=== PATIENT | male | born 1950 | race Two or more races ===

== ENCOUNTER 2025-01-31 08:26 | Emergency (ER) | payer MEDICAID ==
[~2025-01-31] VITALS: Ht 175.3 cm; Wt 90.6 kg
--- NOTE | 2025-01-31 09:58 | ED.PDOC ---
Musculoskeletal HPI Comments 74 year old male presents for chronic bilateral knee pain Been dealing with pain for years Had knee replacement 2 years ago Reports pain is constant and aggravated with ambulation PCP: Dr. Aracelis Rogers Next apt 1 month Able to bear weight on the leg Denies trauma to the knee or recent fall Denies skin color changes around the knee Denies masses around the knee Denies popping/locking/giving out of the knee Denies fever chills night sweats nausea vomiting Denies previous surgeries to the knee nor significant injury Chief Complaint: Lower Extremity Time Seen by MD: 09:15 Primary Care Provider: CHRISTOS Reviewed Notes: Nurses Notes, Medications, Allergies Allergies: Coded Allergies: NO KNOWN ALLERGIES (Unverified , 01/31/25) Home Meds Active Scripts Lidocaine (LIDODERM 5% TOPICAL PATCH) 1 Patch Ph, 1 PATCH TOP DAILY for 30 Days, #30 PATCH 0 Refills Prov:NAYE SOLIAMN NP 01/31/25 Meloxicam (Meloxicam) 15 Mg Tab, 1 TAB PO DAILY for 30 Days, #30 TAB 1 Refill Prov:NAYE SOLIMAN NP 01/31/25 Information Source: Patient Mode of Arrival: Ambulatory All Other Systems: Reviewed and Negative (per hpi) Physical Exam General Appearance: No Apparent Distress, Normal HEENT: Normal ENT Inspection, Pharynx Normal, TMs Normal Neck: Full Range of Motion, Non-Tender, Normal, Normal Inspection Respiratory: Chest Non-Tender, Lungs Clear, No Accessory Muscle Use, No Respiratory Distress, Normal Breath Sounds Cardiovascular: No Edema, No JVD, No Murmur, No Gallop, Normal Peripheral Pulses, Regular Rate/Rhythm Breast Exam: Deferred Gastrointestinal: No Organomegaly, Non Tender, No Pulsatile Mass, Normal Bowel Sounds, Soft Genitalia: Deferred Pelvic: Deferred Rectal: Deferred Extremities: No calf tenderness, Normal capillary refill, Normal inspection, Normal range of motion, Non-tender, No pedal edema Musculoskeletal : Location: Bilateral Extremity Location: Knee (Surgical scar to the right knee. No concerns for infection at this time. Extension and flexion. 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 Was a procedure done?: No Differential Diagnosis EXT Differential Diagnosis: Sprain, Arthritis X-Ray, Labs, Meds, VS Vital Signs Date Time Temp Pulse Resp B/P (MAP) Pulse Ox O2 Delivery O2 Flow Rate FiO2 01/31/25 09:59 98.4 73 20 159/86 (110) 95 98.4 01/31/25 09:59 73 20 95 Room Air 01/31/25 08:41 98.4 73 0 159/86 (110) 95 PATIENT: ADRY SANTOSACCT: [id number]: [id number] : 1950 LOC: ER ROOM / BED: / AGE / SEX: 74 / M ADM STATUS: REG ER SERVICE 4 ORDERING PHYSICIAN: NAYE SOLIMAN NP PROCEDURE(s): RKN3 - R KNEE 3V XRAY REASON: bilateral knee pain. OA? ORDER NUMBER(s): [id number], ACCESSION NUMBER(s): [id number] CLINICAL INDICATION: bilateral knee pain. OA TECHNIQUE: 3 radiographic views of the right knee were obtained. Comparison: None FINDINGS/IMPRESSION: There is no evidence of acute fracture or dislocation. Postsurgical changes are visualized in the distal right femur. Severe osteoarthrosis of the patellofemoral joint. ATED BY: ZULEYMA PEREZ MD DICTATED DATE/TIME: 01/31/25 100 SIGNED BY: ZULEYMA PEREZ MD SIGNED DATE/TIME: 01/31/25 100 CC: X-Ray, Labs, Meds, VS Comment Postsurgical changes are visualized in the distal right femur. Severe osteoarthrosis of the patellofemoral joint. X-ray of the knees ordered X-ray interpreted by radiologist and reviewed by me Prescribed Meloxicam for the management of acute knee pain. Recommend light walking under the sun for 30 minutes a day Avoiding running jogging high-impact activities Stretch as tolerated Ice 3x/day for 5 minutes Wear knee brace for stability as needed, elevate leg swelling aggravated Follow up with PCP was advised On reevaluation, patient had symptomatic improvement. Patient is stable for discharge at this time. External notes reviewed. Test results and diagnostic imaging interpreted. All diagnostic findings, discharge care, education and instructions provided Follow-up with PCP in 2 to 3 days Patient verbalized understanding and agreed to treatment plan Vital signs stable, afebrile, no acute distress noted Patient ambulatory with strong steady gait Advised to return precautions for any new or worsening symptoms, return to ER immediately for re-evaluation Patient is aware that the purpose of this visit was for an acute medical emergency requiring emergent stabilization. Chronic conditions, including malignancies have not been ruled out. Patient is instructed to follow up with PCP as directed and discharge instructions for continued care and workup. If unable to arrange follow-up, patient is to return to the emergency department for reassessment. Patient (parent or legal guardian if applicable) was given verbal and written discharge instructions and acknowledges understanding. Time of 1ST Reevaluation: 10:00 Reevaluation 1ST: Improved Patient Education/Counseling: Diagnosis, Treatment Family Education/Counseling: Diagnosis, Treatment Departure 1 Departure Time of Disposition: 10:19 Impression: Primary Impression: Arthritis of knee Additional Impression: Knee pain Qualified Codes: M25.561 - Pain in right knee; M25.562 - Pain in left knee; G89.29 - Other chronic pain Disposition: 01 HOME / SELF CARE / HOMELESS Condition: Stable e-Prescriptions Lidocaine (LIDODERM 5% TOPICAL PATCH) 1 Patch Ph 1 PATCH TOP DAILY for 30 Days, #30 PATCH 0 Refills Prov: NAYE SOLIMAN NP 01/31/25 Meloxicam (Meloxicam) 15 Mg Tab 1 TAB PO DAILY for 30 Days, #30 TAB 1 Refill Prov: NAYE SOLIMAN NP 01/31/25 Critical Care Note Critical Care Time?: No Stability Stability form required: No Heart Score Heart Score: Heart Score Response (Comments) Value History N/A 0 EKG N/A 0 Age N/A 0 Risk Factors N/A 0 Troponin N/A 0 Total 0 NAYE SOLIMAN NP Jan 31, 2025 09:58
[2025-01-31 09:59] VITALS: BP 159/86; PULSE 73; RESP 20; TEMP 98.4; O2SAT 95
--- NOTE | 2025-01-31 10:01 | DVH ---
CLINICAL INDICATION: bilateral knee pain. OA TECHNIQUE: 3 radiographic views of the left knee were obtained. Comparison: None FINDINGS/IMPRESSION: There is no evidence of acute fracture or dislocation. The visualized joint space is well maintained. The alignment is anatomical. There is no radiopaque foreign body.
--- NOTE | 2025-01-31 10:03 | DVH ---
CLINICAL INDICATION: bilateral knee pain. OA TECHNIQUE: 3 radiographic views of the right knee were obtained. Comparison: None FINDINGS/IMPRESSION: There is no evidence of acute fracture or dislocation. Postsurgical changes are visualized in the distal right femur. Severe osteoarthrosis of the patellofe moral joint.
[2025-01-31] MEDS ORDERED: MELO15TA29 PO (10:24)
[2025-01-31] MEDS ORDERED: LIDO5DIS21 TOP (10:24)
== END 2025-01-31 10:43 | disposition home or self-care (01) ==
LOC: ER 08:26
DX: M17.0 Bilateral primary osteoarthritis of knee (principal); Z79.1 Long term (current) use of non-steroidal anti-inflammatories (NSAID); Z96.659 Presence of unspecified artificial knee joint; Z79.899 Other long term (current) drug therapy
CPT/HCPCS: 73562

== ENCOUNTER 2025-02-07 14:46 | Emergency (ER) | payer MEDICAID ==
[~2025-02-07] VITALS: Ht 175.3 cm; Wt 91.3 kg
[~2025-02-07 14:46] MED LIST: LIDO5DIS21 TOP; MELO15TA29 PO
--- NOTE | 2025-02-07 15:05 | ED.PDOC ---
History of Present Illness HPI Comments 74 year old male presents to the ED with chief complaint of bilateral knee pain. Patient was reportedly seen on 01/31/25 for the same complaint, having bilateral knee XRs performed. Patient reports that he was called today by his PCP Dr. Rogers to come into the ED, however, he is not sure why he needed to come today. Patient states he continues to experience pain in his knees. Patient denies any numbness, weakness, injury, or fall. Time Seen by MD: 15:02 Primary Care Provider: CHRISTOS Reviewed Notes: Nurses Notes, Medications, Allergies Allergies: Coded Allergies: NO KNOWN ALLERGIES (Unverified , 01/31/25) Home Meds Active Scripts Lidocaine (LIDODERM 5% TOPICAL PATCH) 1 Patch Ph, 1 PATCH TOP DAILY for 30 Days, #30 PATCH 0 Refills Prov:NAYE SOLIMAN NP 01/31/25 Meloxicam (Meloxicam) 15 Mg Tab, 1 TAB PO DAILY for 30 Days, #30 TAB 1 Refill Prov:NAYE SOLIMAN NP 01/31/25 Information Source: Patient Mode of Arrival: Ambulatory Severity: Mild Timing: Days Duration: Since onset Prehospital treatment: None Past Medical History PAST MEDICAL HISTORY: HTN Surgical History (Other): Rt knee surgery Family History Family History: Reviewed,noncontributory to illness Social History Smoker: Non-Smoker Alcohol: Denies ETOH Use Drugs: Denies Drug Use Lives In: Home Constitutional: denies: chills, diaphoresis, fatigue, fever, malaise, sweats, weakness, others EENTM: denies: blurred vision, double vision, ear bleeding, ear discharge, ear drainage, ear pain, ear ringing, eye pain, eye redness, hearing loss, mouth pain, mouth swelling, nasal discharge, nose bleeding, nose congestion, nose pain, photophobia, tearing, throat pain, throat swelling, voice changes, others Respiratory: denies: cough, hemoptysis, orthopnea, SOB at rest, shortness of breath, SOB with excertion, stridor, wheezing, others Cardiovascular: denies: chest pain, dizzy spells, diaphoresis, Dyspnea on exertion, edema, irregular heart beat, left arm pain, lightheadedness, palpitations, PND, syncope, others Gastrointestinal: denies: abdomen distended, abdominal pain, blood streaked bowels, constipated, diarrhea, dysphagia, difficulty swallowing, hematemesis, melena, nausea, poor appetite, poor fluid intake, rectal bleeding, rectal pain, vomiting, others Genitourinary: denies: burning, dysuria, flank pain, frequency, hematuria, incontinence, penile discharge, penile sore, pain, testicle pain, testicle swelling, urgency, others Neurological: denies: dizziness, fainting, headache, left sided numbness, left sided weakness, numbness, paresthesia, pre-existing deficit, right sided numbness, right sided weakness, seizure, speech problems, tingling, tremors, we akness, others Musculoskeletal: reports: others (Bilateral knee pain); denies: back pain, gout, joint pain, joint swelling, muscle pain, muscle stiffness, neck pain Integumetry: denies: bruises, change in color, change in hair/nails, dryness, laceration, lesions, lumps, rash, wounds, others Allergic/Immunocompromised: denies: Difficulty Healing, Frequent Infections, Hives, Itching, others Hematologic/Lymphatic: denies: anemia, blood clots, easy bleeding, easy bruising, swollen glands, others Endocrine: denies: excessive hunger, excessive sweating, excessive thirst, excessive urination, flushing, intolerance to cold, intolerance to heat, unexplained weight gain, unexplained weight loss, others Psychiatric: denies: anxiety, bipolar disorder, depression, hopeless, panic disorder, schizophrenia, sleepless, suicidal, others All Other Systems: Reviewed and Negative Physical Exam General Appearance: No Apparent Distress HEENT: Normal ENT Inspection, Pharynx Normal, TMs Normal Neck: Full Range of Motion, Non-Tender, Normal, Normal Inspection Respiratory: Chest Non-Tender, Lungs Clear, No Accessory Muscle Use, No Respiratory Distress, Normal Breath Sounds Cardiovascular: No Edema, No JVD, No Murmur, No Gallop, Normal Peripheral Pulses, Regular Rate/Rhythm Breast Exam: Deferred Gastrointestinal: No Organomegaly, Non Tender, No Pulsatile Mass, Normal Bowel Sounds, Soft Genitalia: Deferred Pelvic: Deferred Rectal: Deferred Extremities: No calf tenderness, Normal capillary refill, Normal inspection, Normal range of motion, Non-tender, No pedal edema Musculoskeletal : Apperance: Normal Neurologic: Alert, 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 Was a procedure done?: No Differential Dx Considerations may include: Well check, electrolyte imbalance, anemia X-Ray, Labs, Meds, VS Vital Signs Date Time Temp Pulse Resp B/P (MAP) Pulse Ox O2 Delivery O2 Flow Rate FiO2 02/07/25 15:02 97.3 78 20 138/84 (102) 97 We contacted the patient's primary care physician and they are unaware why they sent the patient to the emergency department's The patient was no complaints at this time The patient was stating that he would just like to go home At this time we are sending the patient home with a well check adult Time of 1ST Reevaluation: 15:48 Reevaluation 1ST: Unchanged Patient Education/Counseling: Diagnosis, Treatment, Prognosis, Need For Follow Up Family Education/Counseling: No Family Present Additional Information -Reviewed patient's previous visit(s): 01/31/25 for arthritis of knee - The following tests were ordered, and results were reviewed by me: None - Additional information was gathered from interviewing the following independent Historian: None - I reviewed and agreed with the following test results read by other provider: None - I discussed treatments and results with medical personnel and: patient Comprehensive systems review obtained and negative except for what is stated in the HPI. Departure 1 Departure Time of Disposition: 15:43 Impression: Primary Impression: Well adult health check Disposition: 01 HOME / SELF CARE / HOMELESS Condition: Fair Discharged With: Self Critical Care Note Critical Care Time?: No Stability Stability form required: No Heart Score Heart Score: Heart Score Response (Comments) Value History N/A 0 EKG N/A 0 Age N/A 0 Risk Factors N/A 0 Troponin N/A 0 Total 0 I personally scribed for ALEJANDRO GIPSON MD ([email or web address]) on 02/07/25 at 15:05. Electronically submitted by David Shen ([email or web address]). ALEJANDRO GIPSON MD Feb 07, 2025 15:05
[2025-02-07 17:02] VITALS: BP 139/81; PULSE 68; RESP 18; TEMP 97.3; O2SAT 95
== END 2025-02-07 17:07 | disposition home or self-care (01) ==
LOC: ER 14:46
DX: M25.561 Pain in right knee (principal); M25.562 Pain in left knee; I10 Essential (primary) hypertension; Z79.899 Other long term (current) drug therapy; Z00.00 Encounter for general adult medical examination without abnormal findings

== ENCOUNTER 2025-02-22 14:33 | Emergency (ER) | payer MEDICAID | END 2025-02-22 14:49 | disposition left against medical advice (07) | LOC: ER 14:35 | DX: M25.562 Pain in left knee (principal); Z53.21 Procedure and treatment not carried out due to patient leaving prior to being seen by health care provider ==

== ENCOUNTER → 2025-03-27 | Outpatient (CLI) | payer MEDICAID ==
[2025-03-27 08:30] LABS: Urine Bacteria None Seen /hpf (None Seen)
[2025-03-27 09:15] LABS: Urine Blood Negative /uL (Negative); Urine Clarity Clear (Clear); Urine Color Light-Yellow (Yellow); Urine Protein, UAD Negative (Negative); Urine Specific Gravity 1.016 (1.001-1.035); Urine Squamous Epithelial Cell None Seen /hpf (<5); Urine Urobilinogen Normal (Negative); Urine WBC < 1 /HPF (0-3)
[2025-03-27 09:23] LABS: Basophils # (auto) 0.1 10 ^3/uL (0-0.2); Basophils % (auto) 0.6 % (0.0-2.0); Eosinophils # (auto) 0.1 10 ^3/uL (0-0.8); Eosinophils % (auto) 1.5 % (0.0-7.0); Hemoglobin 16.5 g/dL (13.5-17.5); Lymphocytes # (auto) 2.5 10 ^3/uL (0.4-5.4); Mean Corpuscular Hemoglobin 30.4 pg (28.0-32.0); Mean Corpuscular Hgb Conc. 33.7 g/dL (32.0-36.0); Mean Corpuscular Volume 90.1 fL (80.0-100.0); Monocytes # (auto) 0.7 10 ^3/uL (0-1.3); Monocytes % (auto) 8.2 % (0.0-12.0); Neutrophils # (auto) 5.5 10 ^3/uL (1.6-8.6); Neutrophils % (auto) 61.7 % (37.0-80.0); Nucleated Red Blood Cells % 0.1 %; Platelet Count (auto) 244 10^3/uL (140-450); Red Blood Cells 5.44 10^6/uL (4.5-5.90); Red Cell Distribution Width 14.9 % (11.8-14.3); White Blood Cell 8.9 10^3/uL (4.4-10.8)
[2025-03-27 09:45] LABS: Alanine Aminotransferase 19 U/L (7-40); Albumin 4.7 g/dL (3.2-4.8); Anion Gap 11 (5-15); Aspartate Aminotransferase 16 U/L (13-40); BUN/Creatinine Ratio 14.8 (10.0-20.0); Blood Urea Nitrogen 12 mg/dL (9-23); Carbon Dioxide 28 mmol/L (20-31); Chloride 101 mmol/L (98-107); Glucose 103 mg/dL (74-106); HDL Cholesterol 52 mg/dL (40-59); Potassium 4.3 mmol/L (3.5-5.1); Sodium 140 mmol/L (136-145); Total Protein 7.8 g/dL (5.7-8.2); Triglycerides 129 mg/dL (< 150)
[2025-03-27 09:46] LABS: Bilirubin, Total 0.6 mg/dL (0.2-1.0)
[2025-03-27 09:48] LABS: Alkaline Phosphatase 117 U/L (46-116); Cholesterol 219 mg/dL (< 200); LDL Cholesterol 161 mg/dL (< 100)
== END | disposition home or self-care (01) ==
LOC: LAB 08:07
PROVIDERS: ATTEND Student in an Organized Health Care Education/Training Program
DX: I10 Essential (primary) hypertension (principal); Z12.11 Encounter for screening for malignant neoplasm of colon; L29.9 Pruritus, unspecified; R35.1 Nocturia; R73.9 Hyperglycemia, unspecified
CPT/HCPCS: 36415; 80053; 80061; 81001; 82785; 83036; 84153; 84443; 85025; 86003

== ENCOUNTER → 2025-04-10 | Outpatient (CLI) | payer MEDICAID | END | disposition home or self-care (01) | LOC: LAB 13:02 | PROVIDERS: ATTEND Student in an Organized Health Care Education/Training Program | DX: I10 Essential (primary) hypertension (principal); R73.9 Hyperglycemia, unspecified; L29.9 Pruritus, unspecified; R35.1 Nocturia; Z12.11 Encounter for screening for malignant neoplasm of colon | CPT/HCPCS: 82274 ==

== ENCOUNTER 2025-06-05 06:45 | Inpatient (IN) | payer MEDICAID ==
[2025-06-01 07:48] LABS: Hematocrit 49.1 % (41.0-53.0); Hemoglobin 16.5 g/dL (13.5-17.5); Mean Corpuscular Hemoglobin 30.1 pg (28.0-32.0); Mean Corpuscular Volume 89.8 fL (80.0-100.0); Nucleated Red Blood Cells % 0.2 %
[2025-06-01 07:54] LABS: Alanine Aminotransferase 19 U/L (7-40); Alkaline Phosphatase 109 U/L (46-116); Anion Gap 9 (5-15); BUN/Creatinine Ratio 10.8 (10.0-20.0); Blood Urea Nitrogen 9 mg/dL (9-23); Calcium 10.1 mg/dL (8.7-10.4); Carbon Dioxide 28 mmol/L (20-31); Chloride 102 mmol/L (98-107); Glucose 95 mg/dL (74-106); Potassium 4.6 mmol/L (3.5-5.1); Sodium 139 mmol/L (136-145)
[2025-06-01 07:55] LABS: Total Protein 7.5 g/dL (5.7-8.2)
[2025-06-01 07:56] LABS: Albumin 4.6 g/dL (3.2-4.8); Bilirubin, Total 0.6 mg/dL (0.2-1.0)
[2025-06-01 08:18] LABS: INR 1.03 (0.9-1.15); Partial Thromboplastin Time 28.1 SEC (24.5-34.5); Prothrombin Time 10.9 sec (9.3-11.8)
[2025-06-01 10:54] LABS: Urine Protein, UAD Negative (Negative)
[~2025-06-05] VITALS: Ht 175.3 cm; Wt 102.2 kg
[~2025-06-05 06:45] MED LIST changes: -LIDO5DIS21 TOP; +LISI20TA56 PO; -MELO15TA29 PO
[2025-06-05] MEDS: ACETAMINOPHEN IV 100 ML IV ONE ×2 (08:02→08:58)
[2025-06-05] MEDS: CELECOXIB 100 MG CAP ONE (08:57)
[2025-06-05] MEDS: PREGABALIN CAPSULE 75 MG CAP ONE (08:58)
[2025-06-05] MEDS ORDERED: MIDAZOLAM HCL 2MG/2ML 2ml VIAL (1mg/ml) ONE (09:14)
[2025-06-05] MEDS ORDERED: fentaNYL CITRATE 100 MCG/2 ML VL ONE (09:15)
[2025-06-05] MEDS ORDERED: PROPOFOL 10 MG/ML 20 ML IV ONE (09:18)
[2025-06-05] MEDS: ACETAMINOPHEN IV 1000 MG/100ML (10MG/ML) IV ONE (09:20)
[2025-06-05] MEDS: CELECOXIB 100 MG CAP PO ONE (09:20)
[2025-06-05] MEDS: PREGABALIN CAPSULE 75 MG CAP PO ONE (09:20)
[2025-06-05] MEDS: ceFAZolin 2 GM/D5W50ml 50 ML IV ONE (09:40)
[2025-06-05] MEDS: ROPIVACAINE 0.5% (5MG/ML) 20ML AMPULE IJ ONE ×2 (09:41→10:19)
[2025-06-05] MEDS: BUPIVACAINE 0.5% P/F INJ 10 ML VIAL ONE (09:44)
[2025-06-05] MEDS: CEFEPIME 1GM/ 50ML 50 ML IV ONE (09:45)
[2025-06-05] MEDS: TRANEXAMIC ACID 20 ML ONE (09:50)
[2025-06-05] MEDS: VANCOMYCIN HCL 1000 MG VL ONE (10:50)
[2025-06-05] MEDS: MORPHINE SULF PF 5 MG/10 ML VIAL ONE (10:50)
[2025-06-05] MEDS: KETOROLAC TROMETH 30 MG/ML 1ML VIAL IV ONE (10:50)
[2025-06-05] MEDS: BUPIVACAINE 0.25% INJ 50ML VIAL ONE (10:50)
[2025-06-05] MEDS ORDERED: MORPHINE SULFATE INJ 2 MG/ml SYRG IV PRN (11:00)
[2025-06-05] MEDS ORDERED: ONDANSETRON HCL 4 MG/2 ML VIAL IV PRN (11:00)
[2025-06-05] MEDS ORDERED: NITROGLYCERIN 0.4 MG SL TAB SL PRN (11:00)
--- NOTE | 2025-06-05 11:01 | DVHOP2 ---
Operative Report - 2 Report Details Date: 06/05/25 Preop Diagnosis: Failed right patella femoral replacement, right knee osteoarthritis Postop Diagnosis: Failed right patella femoral replacement, right knee osteoarthritis Surgeon: Saravanan Whalen MD Reproductive Healthcare Assistant: Mark WHEELER Anesthesiologist: Lorena BHATT Anesthesia: Regional Implant: [employer] Cemented Journey II Size 6 femur PS Size 4 tibia 9 mm PS poly Consent: The patient was informed of the risks and benefits of the procedure. These include but are not limited to complications of anesthesia, postoperative infection, incomplete relief of symptoms, recurrence of symptoms, damage to blood vessels, nerves and tendons, deep venous thrombosis, pulmonary embolism and possible need for repeat surgery in the future. Estimated Blood Loss: 50 cc Name of Procedure Performed 1. Revision right total knee arthroplasty, computer navigation, right patella femoral replacement hardware removal, placement of prevena wound vac Procedure Details Procedure Details: INDICATION: This patient has failed non-operative treatments for knee arthritis and is now indicated for a total knee replacement. Previous history of patellafeomral replacement with continued pain x 2 years. Preoperatively in the waiting area as well as in the office, I had a long discussion with the patient regarding the plan, the expected outcome, the risks, benefits, and alternatives of surgery. The risks include, but are not limited to, infection (which may require future surgery and removal of implants) , bleeding (which may require a transfusion), damage to nerves, arteries, veins, tendons, muscles and other adjacent structures. Also discussed the possibilities of intraoperative fractures, implant loosening, heterotopic bone formation, and revision for variety of reasons, and medical complications etc. This was discussed at length and consent has been obtained. DESCRIPTION OF PROCEDURE: In the preoperative holding area, the consent was reviewed and the appropriate extremity was verified by the patient and marked with my initials. The patient was then transferred to the operating theatre. Appropriate anesthesia was induced. All bony prominences were well padded. A time out was performed verifying the side and site of surgery according to standard protocol. Preoperative antibiotics were given 10 minutes prior to tourniquet inflation. Tranexamic acid was given. A well padded thigh tourniquet was applied. The extremity was then prepped and draped in the usual sterile fashion. The extremity was exsanguinated and the tourniquet was inflated. We then made a mid-line incision utilizing previous incision, which we continued to the underlying capsular tissue. We performed a medial parapatellar arthrotomy. We periosteally exposed the proximal tibia, excised the anterior fat pad and synovium from the distal aspect of the femur. Using different techniques we removed the resurfaced component off the femur with minimal bone loss. We then subluxed the patella and brought the knee up into flexion. The lateral meniscus, ACL, and PCL were released. We used the appropriate guide with attached computer navigation to secure the distal femoral cutting block to the femur with pins and completed the distal femoral cut in 0 degrees to the mechanical axis with an oscillating saw. We removed the distal femoral cutting block and turned our attention to the tibia. We used the extramedullary tibial alignment guide with computer navigation to secure the proximal tibial cutting block to the tibia with pins, setting it for a 2 mm cut from the more involved side, and completed the proximal tibial cut. We then used the spacer block and alignment paulette to check the varus-valgus angle of our cuts and the extension gap. The knee was then balanced in extension to varus/valgus stress. We marked our femoral anatomy, including Pettis's line and the epicondylar axis. Using that as a rotational guide, we used the sizing guide to size our femur properly, using a stylus to ensure there would be no notching. We then used the AP cutting guide to make our anterior and posterior cuts and chamfer cuts with an oscillating saw. We again checked the flexion and extension gaps and coronal balancing. Next, we sized our tibia and secured a baseplate with a ppropriate rotation with pins. We placed a trial femur in position and completed preparation of the notch with reamers and box osteotome and placed a trial notch in position. We used trials to choose our liner size and then placed the liner in place and reduced the knee. We used an oscillating saw to resurface the patella, and used a guide to choose the button size and completed patella preparation with the drill. We then placed a trial button in place. At this point, we checked our seven parameters: 1) Limb alignment 2) Extension 3) Flexion against gravity 4) Flexion stability 5) Varus-valgus balancing 6) Component rotation 7) Patella tracking We were satisfied with these and removed all trials with the exception of the baseplate. We completed preparation of the tibia with the appropriate reamer and keel impactor and then removed the baseplate. We placed a bone plug in the distal femur and then irrigated and dried all bony surfaces and injected our pain cocktail. We cemented and impacted our tibial, femoral and patellar components into position. We impacted our liner and reduced the knee and held it with axial loading. We released the tourniquet and achieved hemostasis where necessary. A dilute betadine solution (17.5mL in 500mL saline) was used to wash the joint and left to sit for 3 minutes. This was then irrigated out with copious amounts of pulse lavage. We sprinkled 1g vancomycin powder below the fascia and 1g above the fascia. We copiously irrigated the knee. We re-checked our seven parameters. We closed our capsular incision with a PDS style suture. We irrigated further. We closed the subcutaneous tissue with Vicryl suture and re-approximated the skin with maricarmen. We verified all lower extremity compartments were soft and compressible and that we had intact distal pulses. We wrapped the extremity in sterile Webril and marquita bandage. The patient was transferred to the recovery room in stable condition. Condition Good Disposition Still a Patient SARAVANAN WHALEN MD Jun 05, 2025 11:01
[2025-06-05 11:21] VITALS: PULSE 61; RESP 15; O2SAT 94
[2025-06-05] MEDS ORDERED: ACETAMINOPHEN IV 1000 MG/100ML (10MG/ML) IV PRN (11:45)
[2025-06-05] MEDS ORDERED: MEPERIDINE HCL (25 MG/ML) 1ML VIAL IV PRN (11:45)
[2025-06-05] MEDS ORDERED: HYDROmorphone HCL 2 MG/ML VL/or syr IV PRN (11:45)
--- NOTE | 2025-06-05 13:44 | DVH ---
EXAM: XY R KNEE 3V XRAY CLINICAL INDICATION: S/P SURGERY TECHNIQUE: XY R KNEE 3V XRAY Comparison: XY L KNEE 3V XRAY on DOS: 01/31/25, XY R KNEE 3V XRAY on DOS: 01/31/25 FINDINGS/IMPRESSION: Right total knee arthroplasty in anatomic alignment.
[2025-06-05 17:10] VITALS: BP 144/79; PULSE 76; RESP 20; TEMP 97.7; O2SAT 94
[2025-06-05 17:52] VITALS: PULSE 78; RESP 17; O2SAT 95
[2025-06-05 21:00] VITALS: BP 134/90; PULSE 69; RESP 18; TEMP 98.4; O2SAT 96
[2025-06-05] MEDS: LACTATED RINGER'S 1,000 ML IV SCH (21:16)
[2025-06-05] MEDS: SODIUM CHLOR 0.9% PF (SALINE LOCK) 10ML VIAL/SYR IV SCH (21:16)
[2025-06-05] MEDS: KETOROLAC TROMETH 30 MG/ML 1ML VIAL IV PRN (21:17)
[2025-06-05] MEDS: DOCUSATE SOD 100 MG CAP PO SCH (21:18)
[2025-06-05] MEDS: ceFAZolin 1GM/50ML 50 ML IV SCH (22:58)
[2025-06-06] VITALS (8 sets, daily range): BP systolic 104–147; BP diastolic 55–92; PULSE 63–122; RESP 16–18; TEMP 98.1–99.4; O2SAT 93–97
[2025-06-06] MEDS: ceFAZolin 1GM/50ML 50 ML IV SCH (04:41)
[2025-06-06 05:44] LABS: Hematocrit 39.6 % (41.0-53.0); Hemoglobin 13.4 g/dL (13.5-17.5)
[2025-06-06] MEDS: PANTOPRAZOLE 40 MG TAB PO SCH (06:06)
[2025-06-06 06:13] LABS: Alanine Aminotransferase 15 U/L (7-40); Albumin 3.8 g/dL (3.2-4.8); Alkaline Phosphatase 83 U/L (46-116); Anion Gap 8 (5-15); BUN/Creatinine Ratio 12.0 (10.0-20.0); Blood Urea Nitrogen 9 mg/dL (9-23); Calcium 9.6 mg/dL (8.7-10.4); Carbon Dioxide 25 mmol/L (20-31); Chloride 106 mmol/L (98-107); Glucose 104 mg/dL (74-106); Potassium 4.0 mmol/L (3.5-5.1); Sodium 139 mmol/L (136-145); Total Protein 6.0 g/dL (5.7-8.2)
[2025-06-06 06:37] LABS: Bilirubin, Total 0.9 mg/dL (0.2-1.0)
--- NOTE | 2025-06-06 07:54 | DVHPN2 ---
Progress Note Date Seen: Jun 06, 2025 Medical Necessity Reason Pt with a Central, PICC or Fol: No Subjective Patient reports: No new complaints Objective vital signs Vital Sign Date Time Temp Pulse Resp B/P (MAP) Pulse Ox O2 Delivery O2 Flow Rate FiO2 06/06/25 05:00 98.3 63 18 104/55 (71) 97 98.3 06/05/25 20:00 Room Air* 0 21 Total Intake and Output 06/05/25 06/05/25 06/06/25 15:00 23:00 07:00 Intake Total 320 ml 550 ml Output Total 1600 ml Balance 320 ml -1050 ml medications Current Medications Medications Dose Ordered Sig/Bonnie Route Start Time Stop Time Status Last Admin Dose Admin Lisinopril 10 mg DAILY PO 06/06/25 10:00 Cefepime HCl 50 ml @ 12.5 mls/hr DAILY IV 06/06/25 10:00 Ketorolac Tromethamine 15 mg Q6HPRN PRN IV 06/05/25 11:00 06/10/25 10:59 06/05/25 21:17 15 MG Pantoprazole Sodium 40 mg DAILY@0600 PO 06/06/25 06:00 06/06/25 06:06 40 MG Aspirin 81 mg DAILY PO 06/06/25 10:00 Lactated Ringer's 1,000 ml @ 100 mls/hr Q10H IV 06/05/25 11:00 06/05/25 21:16 100 MLS/HR Sodium Chloride 10 ml Q8HR IV 06/05/25 14:00 06/06/25 06:06 10 ML Oxycodone/ Acetaminophen 1 tab Q4HP PRN PO 06/05/25 11:00 Hydromorphone HCl 1 mg Q2HP PRN IV 06/05/25 11:00 Ondansetron HCl 4 mg Q6HP PRN IV 06/05/25 11:00 Docusate Sodium 100 mg Q12HR PO 06/05/25 22:00 06/05/25 21:18 100 MG Nitroglycerin 0.4 mg Q5MINP PRN SL 06/05/25 11:00 Morphine Sulfate 2 mg Q30M PRN IV 06/05/25 11:00 Cefazolin Sodium 50 ml @ 50 mls/hr Q6H IV 06/06/25 05:00 06/06/25 11:59 06/06/25 04:41 50 MLS/HR Examination: GENERAL:Normal, MSK:Abnormal laboratory and microbiology Laboratory Tests 06/06/25 05:02 06/01/25 06:25 Test 06/06/25 05:02 Range/Units Serum Glucose 104 74-106 mg/dL Problem List/Assessment/Plan Problem List/Assessment/Plan 74 year old male who is s/p right TKA revision POD 1 1. Pain control 2. WBAT 3. CPM 4. Physical therapy 5. DVT ppx 6. d/c planning for home tomorrow Plan discussed with: Patient Date of Service: Jun 06, 2025 Billing Provider: BRENDA WHALEN MD Common Visit Codes: NOT BILLABLE ELISHA ACEVEDO NP Jun 06, 2025 07:54
[2025-06-06] MEDS: LISINOPRIL 20 MG TAB PO SCH (09:00)
[2025-06-06] MEDS: CEFEPIME 1GM/ 50ML 50 ML IV SCH (09:00)
[2025-06-06] MEDS: ONDANSETRON HCL 4 MG/2 ML VIAL IV ONE (10:12)
--- NOTE | 2025-06-06 11:01 | DVHHP2 ---
Review of Systems Allergies: Coded Allergies: NO KNOWN ALLERGIES (Unverified , 01/31/25) Medications Current Medications Medications Dose Ordered Sig/Bonnie Route Start Time Stop Time Status Last Admin Dose Admin Lisinopril 10 mg DAILY PO 06/06/25 10:00 06/06/25 09:00 10 MG Cefepime HCl 50 ml @ 12.5 mls/hr DAILY IV 06/06/25 10:00 06/06/25 09:00 12.5 MLS/HR Ketorolac Tromethamine 15 mg Q6HPRN PRN IV 06/05/25 11:00 06/10/25 10:59 06/05/25 21:17 15 MG Pantoprazole Sodium 40 mg DAILY@0600 PO 06/06/25 06:00 06/06/25 06:06 40 MG Aspirin 81 mg DAILY PO 06/06/25 10:00 06/06/25 09:00 81 MG Sodium Chloride 10 ml Q8HR IV 06/05/25 14:00 06/06/25 06:06 10 ML Oxycodone/ Acetaminophen 1 tab Q4HP PRN PO 06/05/25 11:00 Hydromorphone HCl 1 mg Q2HP PRN IV 06/05/25 11:00 Ondansetron HCl 4 mg Q6HP PRN IV 06/05/25 11:00 Docusate Sodium 100 mg Q12HR PO 06/05/25 22:00 06/06/25 08:59 100 MG Nitroglycerin 0.4 mg Q5MINP PRN SL 06/05/25 11:00 Morphine Sulfate 2 mg Q30M PRN IV 06/05/25 11:00 Cefazolin Sodium 50 ml @ 50 mls/hr Q6H IV 06/06/25 05:00 06/06/25 11:59 06/06/25 04:41 50 MLS/HR Exam Vital Signs Vital Signs Date Time Temp Pulse Resp B/P (MAP) Pulse Ox O2 Delivery O2 Flow Rate FiO2 06/06/25 09:30 98.3 66 18 126/81 (96) 94 98.3 06/05/25 20:00 Room Air* 0 21 Labs/Xrays Labs Test 06/06/25 05:02 06/01/25 06:25 Range/Units Hemoglobin 13.4 #L 13.5-17.5 g/dL Hematocrit 39.6 #L 41.0-53.0 % Sodium Level 139 136-145 mmol/L Potassium Level 4.0 3.5-5.1 mmol/L Chloride Level 106 98-107 mmol/L Carbon Dioxide Level 25 20-31 mmol/L Anion Gap 8 5-15 Blood Urea Nitrogen 9 9-23 mg/dL Creatinine 0.75 0.700-1.30 mg/dL Glomerular Filtration Rate Calc 95 >90 mL/min BUN/Creatinine Ratio 12.0 10.0-20.0 Serum Glucose 104 74-106 mg/dL Calcium Level 9.6 8.7-10.4 mg/dL Total Bilirubin 0.9 0.2-1.0 mg/dL Aspartate Amino Transferase (AST) 23 13-40 U/L Alanine Aminotransferase (ALT) 15 7-40 U/L Alkaline Phosphatase 83 46-116 U/L Total Protein 6.0 5.7-8.2 g/dL Albumin 3.8 3.2-4.8 g/dL White Blood Count 7.8 4.4-10.8 10^3/uL Red Blood Count 5.47 4.5-5.90 10^6/uL Mean Corpuscular Volume 89.8 80.0-100.0 fL Mean Corpuscular Hemoglobin 30.1 28.0-32.0 pg Mean Corpuscular Hemoglobin Concent 33.5 32.0-36.0 g/dL Red Cell Distribution Width 14.9 H 11.8-14.3 % Platelet Count 228 140-450 10^3/uL Mean Platelet Volume 9.1 6.9-10.8 fL Neutrophils (%) (Auto) 58.8 37.0-80.0 % Lymphocytes (%) (Auto) 29.7 10.0-50.0 % Monocytes (%) (Auto) 9.6 0.0-12.0 % Eosinophils (%) (Auto) 1.3 0.0-7.0 % Basophils (%) (Auto) 0.6 0.0-2.0 % Neutrophils # (Auto) 4.6 1.6-8.6 10 ^3/uL Lymphocytes # (Auto) 2.3 0.4-5.4 10 ^3/uL Monocytes # (Auto) 0.8 0-1.3 10 ^3/uL Eosinophils # (Auto) 0.1 0-0.8 10 ^3/uL Basophils # (Auto) 0 0-0.2 10 ^3/uL Nucleated Red Blood Cells 0.2 % Prothrombin Time 10.9 9.3-11.8 sec Prothrombin Time INR 1.03 0.9-1.15 Activated Partial Thromboplast Time 28.1 24.5-34.5 SEC Urine Color Light-yellow Yellow Urine Clarity Clear Clear Urine pH 7.0 5.0-9.0 Urine Specific [place] 1.013 1.001-1.035 Urine Protein Negative Negative Urine Ketones Negative Negative Urine Blood Negative Negative /uL Urine Nitrite Negative Negative Urine Bilirubin Negative Negative Urine Urobilinogen Normal Negative mg/dL Urine Leukocyte Esterase Negative Negative /uL Urine RBC None seen 0 - 3 /hpf Urine Microscopic WBC < 1 0-3 /HPF Urine Squamous Epithelial Cells None seen <5 /hpf Urine Bacteria None seen None Seen /hpf Urine Sperm Present None Seen /hpf Urine Glucose Normal Normal mg/dL Assessment/Plan Assessment/Plan see dictated note Plan discussed with: Patient Date of Service: Jun 06, 2025 Billing Provider: TAYO BREWER MD Common Visit Codes: [id number] INP/OBS CARE (HIGH) Secondary Visit Codes: [id number] CARE PLAN 30 MINUTES TAYO BREWER MD Jun 06, 2025 11:01
--- NOTE | 2025-06-06 11:14 | DVHHP ---
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 The patient at this time denies any significant pain. No chest pain, no shortness of breath, no nausea or vomiting. REVIEW OF SYSTEMS: Review of rest of systems is otherwise currently negative. PAST MEDICAL HISTORY: Significant for hypertension. MEDICATIONS: He takes lisinopril. ALLERGIES: No known drug allergies. SOCIAL HISTORY: He denies smoking, alcohol. Lives at home with his . FAMILY HISTORY: Negative. PHYSICAL EXAMINATION: GENERAL: The patient is awake and alert. VITAL SIGNS: Temperature of 98.3, pulse 63 per minute, blood pressure 104/71. SHEENT: Unremarkable. NECK: There is no JVD, no pedal edema. LUNGS: Equal bilaterally. No added sounds. CARDIOVASCULAR: S1 and S2 is regular without murmurs. ABDOMEN: Soft. There is no organomegaly. NEUROLOGIC: Nonfocal. MUSCULOSKELETAL: The right knee is currently in a dressing. ASSESSMENT AND PLAN: * Hypertension for which the patient's lisinopril will be held and blood pressure will be monitored. * Obesity. * Status post right knee surgery. * The patient will receive physical therapy and pain medications. * Advanced care planning. The patient is a full code-Time spent was 18 minutes. MD ELIZABET Glass/AMERICO TID: [id number] RECEIPT: [id number] MTDD
[2025-06-06] MEDS: OXYCODONE W/ ACETAMINOPHEN 5/325MG TABLET PO PRN (16:57)
[2025-06-06] MEDS ORDERED: ETOMIDATE (2MG/ML) 20ML VIAL IV ONE (19:55)
[2025-06-06] MEDS: HYDROmorphone HCL 2 MG/ML VL/or syr IV PRN (20:32)
[2025-06-06] MEDS: SODIUM CHLORIDE 0.9% 500 ML IV ONE (23:00)
[2025-06-07 01:00] VITALS: BP 96/74; PULSE 113; RESP 20; TEMP 96.7; O2SAT 95
[2025-06-07 05:00] VITALS: BP 138/67; PULSE 95; RESP 16; TEMP 98; O2SAT 92
[2025-06-07 05:56] LABS: Hematocrit 42.3 % (41.0-53.0); Hemoglobin 14.4 g/dL (13.5-17.5)
--- NOTE | 2025-06-07 07:49 | DVHPN2 ---
Progress Note Date Seen: Jun 07, 2025 Medical Necessity Reason Pt with a Central, PICC or Fol: No Subjective Patient reports: No new complaints Objective vital signs Vital Sign Date Time Temp Pulse Resp B/P (MAP) Pulse Ox O2 Delivery O2 Flow Rate FiO2 06/07/25 05:00 98.0 95 16 138/67 (90) 92 98.0 06/06/25 20:00 Room Air* 0 21 Total Intake and Output 06/06/25 06/06/25 06/07/25 15:00 23:00 07:00 Intake Total 1050 ml 950 ml Output Total 1400 ml 900 ml Balance 1050 ml -450 ml -900 ml medications Current Medications Medications Dose Ordered Sig/Bonnie Route Start Time Stop Time Status Last Admin Dose Admin Cefepime HCl 50 ml @ 12.5 mls/hr DAILY IV 06/06/25 10:00 06/06/25 09:00 12.5 MLS/HR Ketorolac Tromethamine 15 mg Q6HPRN PRN IV 06/05/25 11:00 06/10/25 10:59 06/05/25 21:17 15 MG Pantoprazole Sodium 40 mg DAILY@0600 PO 06/06/25 06:00 06/07/25 06:19 40 MG Aspirin 81 mg DAILY PO 06/06/25 10:00 06/06/25 09:00 81 MG Sodium Chloride 10 ml Q8HR IV 06/05/25 14:00 06/07/25 06:19 10 ML Oxycodone/ Acetaminophen 1 tab Q4HP PRN PO 06/05/25 11:00 06/06/25 16:57 1 TAB Hydromorphone HCl 1 mg Q2HP PRN IV 06/05/25 11:00 06/06/25 20:32 1 MG Ondansetron HCl 4 mg Q6HP PRN IV 06/05/25 11:00 Docusate Sodium 100 mg Q12HR PO 06/05/25 22:00 06/06/25 20:32 100 MG Nitroglycerin 0.4 mg Q5MINP PRN SL 06/05/25 11:00 Morphine Sulfate 2 mg Q30M PRN IV 06/05/25 11:00 Examination: GENERAL:Normal, MSK:Abnormal laboratory and microbiology Laboratory Tests 06/07/25 05:06 7/8/25 05:02 06/01/25 06:25 Test 06/06/25 05:02 Range/Units Serum Glucose 104 74-106 mg/dL Problem List/Assessment/Plan Problem List/Assessment/Plan 74 year old male who is s/p right TKA revision POD 2 1. Pain control 2. WBAT 3. CPM 4. Physical therapy 5. DVT ppx 6. follow up in 2 weeks at [facility] ortho clinic 7. prescriptions for narcotic, aspirin and keflex sent electronically to patients preferred pharmacy by LEONCIO Guzman 8. clear for discharge from orthopedic standpoint with the following discharge recommendations: Total Knee Arthroplasty Discharge Instructions Wound Care 1. You will likely have a gel-type dressing over your wound, you may keep this on for 7-14 days after leaving the hospital until your first post-op visit, unless it becomes soiled or your skin becomes irritated. If a wound vac dressing is placed on your knee this is to be left in place for one week and will be changed as needed. After your remove the dressing or wound vac, the home health nurse may place clean dry dressing over your wound. Keep wound covered, clean and dry for two weeks. 2. [place] will be removed during your initial post-op visit. If you have concerns about our wound, please call the office immediately. If nervous about staple removal can take pain pill one hour prior to appointment. 3. If there is drainage from your wound, change the dressing daily until it stops. If drainage lasts more than 10 days, call our office. 4. Low grade (up to 100 degrees) fever is common for the first week after surgery. You should take your temperature daily. If you have fevers of 101 or more, please call the office. Medication Management 1. You will be discharged with pain medication, a blood thinner (unless you were previously on a blood thinner prior to surgery) and stool softener. Please follow the instructions regarding these medications as provided by your nurse at the hospital upon discharge. 2. Blood clots in the leg are a known complication of surgery. It is very important that you take the medication to protect against clots. Depending on what you are discharged on typically it is Lovenox 40mg daily for 2 weeks or Aspirin 81mg twice daily for 4 weeks. After you finish this, you should then take baby Aspirin (81mg) once daily for 2 weeks. 3. You should restart all of your prescription medications once discharged from the hospital/surgery center unless specifically instructed otherwise. 4. Herbal supplements may be restarted 2 weeks after surgery. 5. If you have been given Coumadin as a blood thinner, please follow up with your [employer]er [employer] during the first two weeks after surgery to review medications and overall medical well-being. 6. Please note that narcotic pain medication may cause constipation. Please remember to take stool softeners (Colace) when using narcotics to help reduce the change of constipation. You should not use alcohol together with narcotic medication. Activity [facility] Instructions 1. Driving is not permitted within the first 2 weeks. 2. Your first postoperative visit will take place 2 weeks after discharge. Please call the office once you are home from the hospital to arrange this appointment. 3. Antibiotic preventative treatment is required before dental or other invasive procedures. Please ask your surgeon about this at your first postoperative visit. If you experience chest pain, shortness of breath or severe painful calf swelling, go to the nearest emergency room to be evaluated. Please call our office once your situation is stabilized. Plan discussed with: Patient Date of Service: Jun 07, 2025 Billing Provider: BRENDA WHALEN MD Common Visit Codes: NOT BILLABLE ELISHA ACEVEDO NP Jun 07, 2025 07:49
[2025-06-07 08:00] VITALS: PULSE 98; RESP 18; O2SAT 97
[2025-06-07 09:00] VITALS: BP 129/82; PULSE 98; RESP 18; TEMP 98.9; O2SAT 97
--- NOTE | 2025-06-07 10:34 | DVHPN2 ---
Progress Note Date Seen: Jun 07, 2025 Medical Necessity Reason Pt with a Central, PICC or Fol: No Subjective Patient reports: No new complaints Review of Systems: HEENT:Normal, CVS:Normal, RESPIRATORY:Normal, GI:Normal, :Normal, MSK:Normal, NEURO:Normal Objective vital signs Vital Sign Date Time Temp Pulse Resp B/P (MAP) Pulse Ox O2 Delivery O2 Flow Rate FiO2 06/07/25 09:00 98.9 98 18 129/82 (98) 97 98.9 06/06/25 20:00 Room Air* 0 21 Total Intake and Output 06/06/25 06/06/25 06/07/25 15:00 23:00 07:00 Intake Total 1050 ml 950 ml 420 ml Output Total 1400 ml 1700 ml Balance 1050 ml -450 ml -1280 ml medications Current Medications Medications Dose Ordered Sig/Bonnie Route Start Time Stop Time Status Last Admin Dose Admin Cefepime HCl 50 ml @ 12.5 mls/hr DAILY IV 06/06/25 10:00 06/06/25 09:00 12.5 MLS/HR Ketorolac Tromethamine 15 mg Q6HPRN PRN IV 06/05/25 11:00 06/10/25 10:59 06/05/25 21:17 15 MG Pantoprazole Sodium 40 mg DAILY@0600 PO 06/06/25 06:00 06/07/25 06:19 40 MG Aspirin 81 mg DAILY PO 06/06/25 10:00 06/07/25 09:23 81 MG Sodium Chloride 10 ml Q8HR IV 06/05/25 14:00 06/07/25 06:19 10 ML Oxycodone/ Acetaminophen 1 tab Q4HP PRN PO 06/05/25 11:00 06/06/25 16:57 1 TAB Hydromorphone HCl 1 mg Q2HP PRN IV 06/05/25 11:00 06/06/25 20:32 1 MG Ondansetron HCl 4 mg Q6HP PRN IV 06/05/25 11:00 Docusate Sodium 100 mg Q12HR PO 06/05/25 22:00 06/07/25 09:23 100 MG Nitroglycerin 0.4 mg Q5MINP PRN SL 06/05/25 11:00 Morphine Sulfate 2 mg Q30M PRN IV 06/05/25 11:00 Examination: GENERAL:Normal, HEENT:Normal, NECK:Normal, LUNGS:Normal, CVS:Normal, ABDOMEN:Normal, MSK:Normal, MSK:Abnormal (right knee dressing), SKIN:Normal, NEURO:Normal, :Normal laboratory and microbiology Laboratory Tests 06/07/25 05:06 06/06/25 05:02 06/01/25 06:25 Test 06/06/25 05:02 Range/Units Serum Glucose 104 74-106 mg/dL Problem List/Assessment/Plan Problem List/Assessment/Plan * Hypertension for which the patient's lisinopril will be held and blood pressure will be monitored. * Obesity. * Status post right knee surgery: difficulty ambulating, ortho re eval * The patient will receive physical therapy and pain medications. * Advanced care planning. The patient is a full code-Time spent was 18 minutes. Plan discussed with: Patient My Orders My Orders Orders - TAYO BREWER MD Procedure Category Date Status Time * Starch Crab CONS 06/06/25 Transmitted Consult Date of Service: Jun 07, 2025 Billing Provider: TAYO BREWER MD Common Visit Codes: [id number] INP/OBS CARE(HIGH) Secondary Visit Codes: [id number] CARE PLAN 30 MINUTES TAYO BREWER MD Jun 07, 2025 10:34
--- NOTE | 2025-06-07 11:29 | DVHDS2 ---
Discharge Summary Date of Admission Jun 05, 2025 at 10:56 Date of Discharge: Jun 07, 2025 Labs/Diagnostic Data: Laboratory Results Test 06/07/25 05:06 06/06/25 05:02 06/01/25 06:25 Hemoglobin 14.4 g/dL (13.5-17.5) Hematocrit 42.3 % (41.0-53.0) Sodium Level 139 mmol/L (136-145) Potassium Level 4.0 mmol/L (3.5-5.1) Chloride Level 106 mmol/L (98-107) Carbon Dioxide Level 25 mmol/L (20-31) Anion Gap 8 (5-15) Blood Urea Nitrogen 9 mg/dL (9-23) Creatinine 0.75 mg/dL (0.700-1.30) Glomerular Filtration Rate Calc 95 mL/min (>90) BUN/Creatinine Ratio 12.0 (10.0-20.0) Serum Glucose 104 mg/dL (74-106) Calcium Level 9.6 mg/dL (8.7-10.4) Total Bilirubin 0.9 mg/dL (0.2-1.0) Aspartate Amino Transferase (AST) 23 U/L (13-40) Alanine Aminotransferase (ALT) 15 U/L (7-40) Alkaline Phosphatase 83 U/L (46-116) Total Protein 6.0 g/dL (5.7-8.2) Albumin 3.8 g/dL (3.2-4.8) White Blood Count 7.8 10^3/uL (4.4-10.8) Red Blood Count 5.47 10^6/uL (4.5-5.90) Mean Corpuscular Volume 89.8 fL (80.0-100.0) Mean Corpuscular Hemoglobin 30.1 pg (28.0-32.0) Mean Corpuscular Hemoglobin Concent 33.5 g/dL (32.0-36.0) Red Cell Distribution Width 14.9 % (11.8-14.3) Platelet Count 228 10^3/uL (140-450) Mean Platelet Volume 9.1 fL (6.9-10.8) Neutrophils (%) (Auto) 58.8 % (37.0-80.0) Lymphocytes (%) (Auto) 29.7 % (10.0-50.0) Monocytes (%) (Auto) 9.6 % (0.0-12.0) Eosinophils (%) (Auto) 1.3 % (0.0-7.0) Basophils (%) (Auto) 0.6 % (0.0-2.0) Neutrophils # (Auto) 4.6 10 ^3/uL (1.6-8.6) Lymphocytes # (Auto) 2.3 10 ^3/uL (0.4-5.4) Monocytes # (Auto) 0.8 10 ^3/uL (0-1.3) Eosinophils # (Auto) 0.1 10 ^3/uL (0-0.8) Basophils # (Auto) 0 10 ^3/uL (0-0.2) Nucleated Red Blood Cells 0.2 % Prothrombin Time 10.9 sec (9.3-11.8) Prothrombin Time INR 1.03 (0.9-1.15) Activated Partial Thromboplast Time 28.1 SEC (24.5-34.5) Urine Color Light-yellow (Yellow) Urine Clarity Clear (Clear) Urine pH 7.0 (5.0-9.0) Urine Specific [place] 1.013 (1.001-1.035) Urine Protein Negative (Negative) Urine Ketones Negative (Negative) Urine Blood Negative /uL (Negative) Urine Nitrite Negative (Negative) Urine Bilirubin Negative (Negative) Urine Urobilinogen Normal mg/dL (Negative) Urine Leukocyte Esterase Negative /uL (Negative) Urine RBC None seen /hpf (0 - 3) Urine Microscopic WBC < 1 /HPF (0-3) Urine Squamous Epithelial Cells None seen /hpf (<5) Urine Bacteria None seen /hpf (None Seen) Urine Sperm Present /hpf (None Seen) Urine Glucose Normal mg/dL (Normal) Other Laboratory Tests 06/07/25 05:06 06/06/25 05:02 06/01/25 06:25 Brief Hx & Hospital Course: see dictated note Condition at Discharge: Good Final Diagnosis/Problems List right knee surgery Discharge Disposition: Home Discharge Instruct/Medications Diet: Regular Activity: No Restrictions, As Tolerated Follow Up/Referral: fu wiht pcp/ortho Medications: resume home meds rest per ortho Scheduled Lisinopril (Lisinopril), 10 MG PO DAILY, (Reported) Discharge Statement: "Patient was advised to return to the ER or call 911 if any headaches, dizziness, shortness of breath, chest pain, abdominal pain, bleeding, fevers, or worsening of medical condition. Patient was counseled about treatment plan, medications, possible side effects, patientverbalized understanding. All questions were answered to the best of my ability. This discharge took greater then 30 minutes in planning, reviewing documentation, counseling the patient, and discussing with other team members." DME: Diagnosis: postop ASSESSMENT ASSESSMENT Assessment right knee surgery Date of Service: Jun 07, 2025 Billing Provider: TAYO BREWER MD Common Visit Codes: [id number]/OBS DISCH DAY >30min TAYO BREWER MD Jun 07, 2025 11:29
--- NOTE | 2025-06-07 11:39 | DVHDS ---
DATE OF DISCHARGE: 06/07/2025 HISTORY OF PRESENT ILLNESS: The patient is a 74-year-old gentleman who was admitted after he underwent surgery on the right knee for failed right patellofemoral surgery. He has a previous history of hypertension. HOSPITAL COURSE: The patient did well postoperatively. His hemoglobin has been stable. He has now been cleared for discharge by Orthopedics, and he will be discharged as per their recommendation for home health and CPM machine. He will follow up with his primary as well as Orthopedics. FINAL DIAGNOSES: * Hypertension. * Obesity. * Status post right knee surgery for failed right patellofemoral surgery. Time spent in discharge planning and review of plan with the patient and nursing was 39 minutes. MD ELIZABET Glass/AMERICO TID: [id number] RECEIPT: [id number]
[2025-06-07 13:30] VITALS: BP 126/71; PULSE 91; RESP 18; TEMP 99.2; O2SAT 94
[2025-06-07 14:43] VITALS: BP 126/71; PULSE 91; RESP 18; TEMP 99.2; O2SAT 94
== END 2025-06-07 19:12 | disposition home or self-care (01) | DRG 470 ==
LOC: SUR 06:45 → OVERFLOW 10:56 → EAST 17:00
PROVIDERS: ADMIT Internal Medicine; ATTEND Internal Medicine
PROC: 0SRC0J9 Replacement of Right Knee Joint with Synthetic Substitute, Cemented, Open Approach (ICD-10-PCS; principal; 2025-06-05 09:30)
DX: M17.11 Unilateral primary osteoarthritis, right knee (principal); I10 Essential (primary) hypertension; E66.9 Obesity, unspecified; Z68.29 Body mass index [BMI] 29.0-29.9, adult
CPT/HCPCS: 36415; 73562; 80053; 81001; 85014; 85018; 85025; 85610; 85730; 86850; 86900; 86901; 97110; 97116; 97163; 97530; C1713; G0378; J0131; J1885; J2250; J2704; J3490

== ENCOUNTER 2025-08-15 07:34 | Outpatient (CLI) | payer MEDICAID ==
[2025-08-15 08:52] LABS: Triglycerides 120 mg/dL (< 150)
[2025-08-15 08:53] LABS: Cholesterol 165 mg/dL (< 200)
[2025-08-15 08:54] LABS: HDL Cholesterol 50 mg/dL (40-59)
== END 2025-08-15 17:00 | disposition home or self-care (01) ==
LOC: LAB 07:34
PROVIDERS: ATTEND Student in an Organized Health Care Education/Training Program
DX: E78.5 Hyperlipidemia, unspecified (principal)
CPT/HCPCS: 36415; 80061